=== PATIENT | female | born 1960 | race African-American/Black ===

== ENCOUNTER 2017-06-22 02:44 | Inpatient (IN) | payer SELFPAY ==
[~2017-06-22] VITALS: Ht 167.6 cm; Wt 180.1 kg
[2017-06-22] VITALS (19 sets, daily range): BP systolic 113–212; BP diastolic 58–96
[~2017-06-22 02:44] MED LIST: ACYC800T PO; PRED50TA PO; SULF1TAB24 PO
--- NOTE | 2017-06-22 02:52 | ED.ADGEN ---
Past History Past Medical History: Diabetes, Hypertension Past Surgical History: Cholecystectomy, Tubal ligation Alcohol Use: None Drug Use: None Adult General Chief Complaint Chief Complaint ".. I think .. I am having an allergic reaction..." HPI HPI Patient is a 56 year old female who presents with above hx and complaints facial and lip edema approximately 1 hour after taking her Lisinopril. Pt. did take two Benadryl. One previous episode of facial edema. No other changes in meds. or foods. No recent travel. Pt. has Hx. HTN, elevated cholesterol, morbid obesity, DM. Review of Systems Review of Systems Constitutional: Denies fever or chills [] Eyes: Denies change in visual acuity, redness, or eye pain [] HENT: Denies nasal congestion or sore throat []Complaints of facial edema. Respiratory: Denies cough or shortness of breath [] Cardiovascular: No additional information not addressed in HPI [] GI: Denies abdominal pain, nausea, vomiting, bloody stools or diarrhea [] : Denies dysuria or hematuria [] Musculoskeletal: Denies back pain or joint pain [] Integument: Denies rash or skin lesions [] Neurologic: Denies headache, focal weakness or sensory changes [] Endocrine: Denies polyuria or polydipsia [] All other systems were reviewed and found to be within normal limits, except as documented in this note. Family History Family History HTN, DM Current Medications Current Medications Current Medications Medications (Trade) Dose Ordered Sig/Travis Start Time Stop Time Status Last Admin Dose Admin Albuterol/ Ipratropium (Duoneb) 3 ml 1X ONCE 06/22/17 03:00 06/22/17 04:49 DC 06/22/17 03:00 3 ML Clonidine HCl (Catapres Tts-2) 1 patch 1X ONCE 06/22/17 03:15 06/22/17 04:49 DC 06/22/17 04:31 1 PATCH Diphenhydramine HCl (Benadryl) 50 mg 1X ONCE 06/22/17 03:00 06/22/17 04:49 DC 06/22/17 03:11 50 MG Famotidine (Pepcid Vial) 20 mg 1X ONCE 06/22/17 03:00 06/22/17 04:49 DC 06/22/17 03:11 20 MG Methylprednisolone Sodium Succinate (SOLU-Medrol 125MG VIAL) 125 mg 1X ONCE 06/22/17 03:00 06/22/17 04:50 DC 06/22/17 03:11 125 MG Ondansetron HCl (Zofran) 4 mg PRN Q4HRS PRN 06/22/17 03:15 06/23/17 03:14 Sodium Chloride 1,000 ml @ 60 mls/hr 1X ONCE 06/22/17 03:15 06/22/17 19:54 See Nursing for home meds Allergies Allergies - apparent allergic reaction to OCTAVIO inhibitor-( Lisinopril) possible allergic reaction to lipid meds by hx. Physical Exam Physical Exam Constitutional: Moderately acute distress, non-toxic appearance. [] HENT: Normocephalic, atraumatic, bilateral external ears normal, oropharynx moist, no oral exudates, nose normal. Marked angioedema to face and lip edema. Eyes: PERRLA, EOMI, conjunctiva normal, no discharge. [] Neck: Normal range of motion, no tenderness, supple, no stridor. [] Cardiovascular:Heart rate regular rhythm, no murmur [PMI to Lt. Lungs & Thorax: Bilateral breath sounds equal at apex on auscultation [] Basilar crackles. Abdomen: Bowel sounds normal, soft, no tenderness, no masses, no pulsatile masses. Morbid obesity. Old surgery scars. Skin: Warm, dry, no erythema, no rash. [] Back: No tenderness, no CVA tenderness. [] Extremities: No tenderness, no cyanosis, no clubbing, ROM intact, ankle edema. [ ] Neurologic: Alert and oriented X 3, normal motor function, normal sensory function, no focal deficits noted. [] Psychologic: Affect anxious, judgement normal, mood normal. [] Current Patient Data Vital Signs Vital Signs Date Time Temp Pulse Resp B/P (MAP) Pulse Ox O2 Delivery O2 Flow Rate FiO2 06/22/17 03:15 96 Room Air 06/22/17 02:55 99.0 90 22 152/101 (118) EKG EKG Pt. refused to get into bed or do EKG- 3:40 hrs. [] My interpretation of EKG shows a sinus rhythm at 79 bpm. Mild leftward axis. Some findings consistent with ventricular hypertrophic. Some nonspecific T-wave changes. But no findings acute STEMI of contralateral changes Radiology/Procedures Radiology/Procedures My interpretation of CXR shows[] some cephalization. Large cardiac silhouette. Course & Med Decision Making Course & Med Decision Making Pertinent Labs and Imaging studies reviewed. (See chart for details) Discussed presentation, testing and treatment plan with Dr. Marie, will admit for further eval and tx. Labs BMP- still pending, sample have been hemolyzed and lab will not run the sample. [] Final Impression Final Impression 1. Angioedema 2. HTN 3. Allergic Reaction- suspect Lisinopril. 4. Morbid obesity[] 5. Anemia-microcytic and hypochromic Problems: Dragon Disclaimer Dragon Disclaimer This electronic medical record was generated, in whole or in part, using a voice recognition dictation system. PAULINA MILLER MD Jun 22, 2017 02:52
[2017-06-22] MEDS ORDERED: IV NORMAL SALINE 1,000ML 1,000 ML IV SCH (02:56)
[2017-06-22] MEDS ORDERED: FAMOTIDINE 20 MG/2 ML VIAL IVP ONE (03:00)
[2017-06-22] MEDS ORDERED: diphenhydrAMINE 50 MG/ML VIAL IV ONE (03:00)
[2017-06-22] MEDS ORDERED: methylPREDNISolone SOD SUCC PF 125 MG/2 ML VIAL. IV ONE (03:00)
[2017-06-22] MEDS ORDERED: IPRATRPIUM/ALBUTEROL 0.5/2.5MG 3 ML NEBU. NEB ONE (03:00)
[2017-06-22] MEDS ORDERED: IV NORMAL SALINE 1,000ML 1,000 ML IV ONE (03:15)
[2017-06-22] MEDS ORDERED: cloNIDine TTS-2 1 PATCH PATCH TD ONE (03:15)
[2017-06-22] MEDS ORDERED: ONDANSETRON PF 4 MG/2 ML VIAL. IV PRN (03:15)
[2017-06-22 04:10] LABS: BASO # 0.1 x10^3/uL (0.0-0.2); BASO % 1 % (0-3); EOS # 0.3 x10^3/uL (0.0-0.7); EOS % 3 % (0-3); HEMOGLOBIN 11.5 g/dL (12.0-15.5); LYMPH # 3.2 x10^3/uL (1.0-4.8); LYMPH % 33 % (24-48); MEAN CORPUSCULAR HEMOGLOBIN 23 pg (25-35); MEAN CORPUSCULAR HGB CONC 31 g/dL (31-37); MEAN CORPUSCULAR VOLUME 73 fL (79-100); MONO # 0.6 x10^3/uL (0.0-1.1); MONO % 6 % (0-9); NEUT # 5.7 x10^3uL (1.8-7.7); NEUT % 58 % (31-73); PLATELET COUNT 272 x10^3/uL (140-400); RED BLOOD COUNT 5.09 x10^6/uL (3.50-5.40); RED CELL DISTRIBUTION WIDTH 16.1 % (11.5-14.5); WHITE BLOOD COUNT 9.9 x10^3/uL (4.0-11.0)
[2017-06-22 04:31] LABS: HYPOCHROMIA SLIGHT; MICROCYTOSIS SLIGHT; PLT ESTIMATE ADEQUATE (ADEQUATE)
[2017-06-22] MEDS ORDERED: METF500T4 PO (04:46)
[2017-06-22] MEDS ORDERED: HYDR25TA9 PO (04:46)
[2017-06-22] MEDS ORDERED: LISI40TA PO (04:46)
[2017-06-22 04:56] LABS: SEDIMENTATION RATE 20 (0-25)
[2017-06-22 05:52] LABS: ALBUMIN 3.5 g/dL (3.4-5.0); CALCIUM 9.3 mg/dL (8.5-10.1); CREATININE 1.2 mg/dL (0.6-1.0); DIRECT BILIRUBIN 0.1 mg/dL (0.0-0.2); GFR 55.8; MAGNESIUM 1.7 mg/dL (1.8-2.4); POTASSIUM 4.3 mmol/L (3.5-5.1); TOTAL BILIRUBIN 0.2 mg/dL (0.2-1.0); TOTAL PROTEIN 9.2 g/dL (6.4-8.2)
--- NOTE | 2017-06-22 06:00 | NUR ---
Admit Note: Pt admitted to ICU 5 from the ER after having an allergic reaction to her Lisinopril. Pt states that she has taken Lisinopril for a while and this is the first time this has happened. Denies any other new medications, soaps, or foods. Pt states her face just started swelling up. Pt is A/O X 4. Pleasant and cooperative with assessments and cares. Denies on SOB and talks in complete sentences at time of admission to the ICU. Will continue to monitor.
--- NOTE | 2017-06-22 07:00 | RAD ---
Portable chest, 06/22/2017: History: Dyspnea Comparison is made to a study from 11/12/2010. The heart is at the upper limits of normal in size. The pulmonary vascularity is normal. No pulmonary infiltrates are seen. There is no evidence of pleural fluid. IMPRESSION: 1. Borderline cardiomegaly. 2. No acute infiltrates.
--- NOTE | 2017-06-22 07:22 | EKG ---
[address] [address] Test Date: 2017-06-22 Test Time: 04:33:41 Pat Name: DAVID CARD Department: Room: Gender: F [employer]: : [id number] Requested By: PAULINA MILLER Order Number: [id number] Reading MD: Measurements Intervals Russell Rate: 79 P: -26 CO: 198 QRS: -26 QRSD: 100 T: 115 QT: 378 QTc: 434 Interpretive Statements SINUS RHYTHM LEFTWARD AXIS R-S TRANSITION ZONE IN V LEADS DISPLACED TO THE LEFT CONSIDER LEFT VENTRICULAR HYPERTROPHY T ABNORMALITY IN HIGH LATERAL LEADS ABNORMAL ECG RI6.01 No previous ECG available for comparison
[2017-06-22] MEDS: FAMOTIDINE 20 MG/2 ML VIAL IVP SCH ×2 (07:58→21:16)
[2017-06-22] MEDS: IPRATRPIUM/ALBUTEROL 0.5/2.5MG 3 ML NEBU. NEB SCH ×4 (08:00→21:53)
[2017-06-22] MEDS ORDERED: diphenhydrAMINE HCL 25 MG CAPSULE PO ONE (08:35)
[2017-06-22] MEDS: diphenhydrAMINE HCL 25 MG CAPSULE PO SCH ×3 (08:38→21:16)
[2017-06-22] MEDS: ACETAMINOPHEN 500 MG TABLET PO PRN ×2 (08:39→22:33)
[2017-06-22] MEDS: ALBUTEROL SULFATE 8GM INHALER. INH SCH ×2 (09:00→13:00)
[2017-06-22] MEDS ORDERED: methylPREDNISolone SOD SUCC PF 125 MG/2 ML VIAL. IV SCH (09:00)
[2017-06-22 10:02] LABS: BACTERIA,URINE 0 /HPF (0-FEW); BILIRUBIN,URINE NEG (NEG); CLARITY,URINE HAZY; COLOR,URINE YELLOW; GLUCOSE,URINE NEG (NEG); NITRITE,URINE NEG (NEG); RBC,URINE RARE /HPF (0-2); SQUAMOUS EPITHELIAL CELL,UR OCC /LPF; UROBILINOGEN,URINE 1 mg/dL (0.2 mg/dL); WBC,URINE RARE /HPF (0-4)
[2017-06-22 10:03] LABS: AMORPHOUS SEDIMENT,UR PRESENT /HPF
[2017-06-22 10:09] LABS: BARBITURATES NEG (NEG); BENZODIAZEPINES NEG (NEG); CANNABINOIDS NEG (NEG); COCAINE NEG (NEG); METHADONE NEG (NEG); OPIATES NEG (NEG); PHENCYCLIDINE NEG (NEG)
[2017-06-22 10:11] LABS: AMPHETAMINE/METHAMPHETAMINE NEG (NEG)
[2017-06-22] MEDS: metFORMIN 500 MG TABLET PO SCH ×2 (11:43→17:02)
[2017-06-22] MEDS: amLODIPine BESYLATE 10 MG TABLET PO SCH (11:43)
[2017-06-22] MEDS: hydroCHLOROthiazide 25 MG TABLET PO SCH (11:43)
[2017-06-22] MEDS ORDERED: FUROSEMIDE 40 MG/4 ML VIAL IVP ONE (15:15)
[2017-06-22] MEDS ORDERED: ALBUTEROL SULFATE 2.5 MG/3 ML NEBU. NEB PRN (16:45)
--- NOTE | 2017-06-22 17:05 | HP ---
ADMIT DATE: 06/22/2017 REASON FOR ADMISSION: Angioedema. HISTORY OF PRESENT ILLNESS: This is a 56-year-old female who took lisinopril and also started noticing her face and her lip gets very, very swollen. This had happened previously, and she has had about 3 doses of lisinopril because she had run out of it because of cost. PAST MEDICAL HISTORY: Morbid obesity, diabetes, hypercholesterolemia, hypertension, hypertension, diabetes, and fibromyalgia. MEDICATIONS: Metformin, unknown dose; lisinopril, unknown dose. PAST SURGICAL HISTORY: Cholecystectomy, tubal ligation. REVIEW OF SYSTEMS: Positive for severe snoring, weight gain, swollen lips, tingling in the back of her throat. No fever in 60 seconds. OBJECTIVE: VITAL SIGNS: Blood pressure is 164/88, pulse 86, respirations 20, pulse ox is 92% on 2 liters, height 66 inches, weight 405 pounds. HEENT: The patient's face is markedly swollen, particularly on the left side. Lips are very swollen, we can see the posterior pharynx. Tongue is not swollen. NECK: Supple, but she has a very short neck. LUNGS: Clear. CARDIOVASCULAR: Regular rhythm and rate. ABDOMEN: Soft, nontender. EXTREMITIES: Without edema. ASSESSMENT: 1. Angioedema secondary to lisinopril. 2. Elevated hypertension, uncontrolled. 3. Morbid obesity. 4. Sleep apnea suspect. PLAN: Treat the blood pressure with an alternative, do a nocturnal oximetry, and continue intravenous steroids and Benadryl. BRITNI HUA DO DR: DANIEL/tana JOB#: [id number] / [id number]
[2017-06-22] MEDS ORDERED: methylPREDNISolone SOD SUCC PF 125 MG/2 ML VIAL. ONE (18:43)
[2017-06-22] MEDS ORDERED: MELATONIN 3 MG TABLET PO PRN (19:15)
[2017-06-22] MEDS: methylPREDNISolone SOD SUCC PF 125 MG/2 ML VIAL. IV SCH (21:16)
[2017-06-23] VITALS (19 sets, daily range): BP systolic 119–187; BP diastolic 58–90
[2017-06-23] MEDS ORDERED: ALBUTEROL SULFATE 2.5 MG/3 ML NEBU. NEB PRN (00:45)
[2017-06-23] MEDS: diphenhydrAMINE HCL 25 MG CAPSULE PO SCH ×4 (01:59→18:00)
--- NOTE | 2017-06-23 03:00 | NUR ---
Patient has been tearful, anxious about being in the hospital. She is wanting to be home by Tuesday for her birthday. Cardene drip has been titrated down and discontinued. Pt's blood pressures are remaining below 160's/90's. Pt has had complaints of headache in the sinus areas of the face. Tylenol has been given per orders. Pt is also having noctural pulse oximetry tonight.
[2017-06-23] MEDS: ACETAMINOPHEN 500 MG TABLET PO PRN ×2 (04:03→08:15)
[2017-06-23] MEDS: IPRATRPIUM/ALBUTEROL 0.5/2.5MG 3 ML NEBU. NEB SCH ×4 (06:06→20:00)
[2017-06-23 06:23] LABS: BASO % 0 % (0-3); EOS % 0 % (0-3); HEMATOCRIT 35.9 % (36.0-47.0); LYMPH # 1.7 x10^3/uL (1.0-4.8); LYMPH % 16 % (24-48); MEAN CORPUSCULAR HEMOGLOBIN 22 pg (25-35); MEAN CORPUSCULAR HGB CONC 31 g/dL (31-37); MEAN CORPUSCULAR VOLUME 72 fL (79-100); MONO # 0.5 x10^3/uL (0.0-1.1); MONO % 4 % (0-9); NEUT # 8.8 x10^3uL (1.8-7.7); NEUT % 80 % (31-73); PLATELET COUNT 236 x10^3/uL (140-400); RED BLOOD COUNT 5.01 x10^6/uL (3.50-5.40); RED CELL DISTRIBUTION WIDTH 15.8 % (11.5-14.5)
[2017-06-23 06:36] LABS: ALBUMIN 3.4 g/dL (3.4-5.0); ALBUMIN/GLOBULIN RATIO 0.6 (1.0-1.7); CALCIUM 9.5 mg/dL (8.5-10.1); CREATININE 0.9 mg/dL (0.6-1.0); GFR 77.8; MAGNESIUM 1.7 mg/dL (1.8-2.4); POTASSIUM 4.1 mmol/L (3.5-5.1); TOTAL BILIRUBIN 0.2 mg/dL (0.2-1.0); TOTAL PROTEIN 9.1 g/dL (6.4-8.2)
[2017-06-23] MEDS ORDERED: SODIUM CHLORIDE 0.65% NASAL SPRAY 45ML BOTTLE. NS PRN (07:15)
[2017-06-23] MEDS ORDERED: MAGNESIUM SULFATE 2GM 50 ML IV ONE (07:15)
[2017-06-23 07:37] LABS: % BANDS 2 % (0-9); % LYMPHS 16 % (24-48); % MONOS 3 % (0-10); % SEGS 79 % (35-66)
[2017-06-23 07:38] LABS: ANISOCYTOSIS SLIGHT; PLT ESTIMATE ADEQUATE (ADEQUATE); POLYCHROMASIA SLIGHT; TOXIC VACUOLATION SLIGHT
[2017-06-23 07:39] LABS: HYPOCHROMIA SLIGHT; MICROCYTOSIS SLIGHT
[2017-06-23 07:40] LABS: TOXIC GRANULATION SLIGHT
--- NOTE | 2017-06-23 07:47 | NUR ---
Pt alert and orient, complains of sinus pain 2/, expressed concerns about discharge in time for birthday. Vital signs stable, blood glucose 188 from AM labs. Pt BG is normally controlled via metformin but is now receiving Solu-Medrol. Will continue to monitor closely.
[2017-06-23] MEDS: FAMOTIDINE 20 MG/2 ML VIAL IVP SCH ×2 (08:14→20:48)
[2017-06-23] MEDS: metFORMIN 500 MG TABLET PO SCH ×2 (08:15→17:00)
[2017-06-23] MEDS: methylPREDNISolone SOD SUCC PF 125 MG/2 ML VIAL. IV SCH ×2 (08:15→20:48)
[2017-06-23] MEDS: hydroCHLOROthiazide 25 MG TABLET PO SCH (08:15)
[2017-06-23] MEDS: amLODIPine BESYLATE 10 MG TABLET PO SCH (08:15)
[2017-06-23] MEDS: LOSARTAN 50 MG TABLET. PO SCH (14:07)
[2017-06-23] MEDS ORDERED: IBUPROFEN 400 MG TABLET. PO PRN (21:00)
[2017-06-24] MEDS: diphenhydrAMINE HCL 25 MG CAPSULE PO SCH ×3 (00:32→11:31)
[2017-06-24 00:39] VITALS: BP 155/60
--- NOTE | 2017-06-24 06:55 | PN ---
DATE: 06/23/2017 SUBJECTIVE: The patient is sitting on the edge of the bed comfortably in no apparent distress. She is feeling much better. The swelling of her face has come down considerably, although continued to have slight swelling of her face; however, she denied any shortness of breath. Denied any difficulty swallowing. Denied any wheezing, chest tightness. PHYSICAL EXAMINATION: GENERAL: When I examined her today, this afternoon, she looked well and was clearly in no apparent respiratory distress, pale, but no jaundice, cyanosis, or thyromegaly. No jugular venous distension. No limb edema. VITAL SIGNS: Her heart rate was 81, blood pressure 135/69, temperature was 97.5, respiratory rate was 18 and oxygen saturation was 95% on room air. HEAD, EYES, EARS, NOSE AND THROAT: Showed normocephalic, atraumatic. NECK: Supple. HEART: Showed normal first and second heart sounds with no gallop, rub or murmur. CHEST: Clear to auscultation. No crepitation or rhonchi. ABDOMEN: Distended, soft, nontender. No guarding or rigidity. No organomegaly. Hernial orifices intact. Bowel sounds normal. NEUROLOGIC: She is awake, alert, responding appropriately. Cranial nerves intact. She moves extremities without difficulty. She ambulates without assistance or assistive devices. Her intake was 4300, output was 2700. LABORATORY DATA: Her lab work this morning showed a white cell count of 11,000, hemoglobin 11, hematocrit 36, MCV 72 and platelet count of 236,000 with a manual differential showing 80% polymorphs, 16% lymphocytes, 4% monocytes. Her serum sodium was 135, potassium 4.1, chloride 97, bicarbonate 27, anion gap of 11, BUN 22, creatinine 0.9, estimated GFR was 77 mL per minute. Her glucose 188, calcium was 9.5. Magnesium was 1.7. Total bilirubin, AST, ALT, alkaline phosphatase are normal. Her total protein was 6.1, albumin was 3.4. TSH was 3.199. Prothrombin time was 10.4, INR 1, PTT was 26. Urinalysis was essentially unremarkable and urine toxicology screen was negative. Nasal screen for MRSA PCR was negative. Her chest x-ray was basically showing borderline cardiomegaly, no acute infiltrate. ASSESSMENT: This is a 56-year-old -[place] female patient with severe angioneurotic edema secondary to lisinopril, hypertension, morbid obesity, obstructive sleep apnea suspected. She is also known to have type 2 diabetes, hypercholesterolemia and fibromyalgia. PLAN: To cut down her steroids. She is on 125 mg IV twice a day and continue with all other medication. Continue with albuterol and Atrovent, famotidine and diphenhydramine. We will obviously discharge her tomorrow if all her swelling has completely subsided and her blood pressure remains stable. ALTAGRACIA WHITTEN MD DR: KERI/tana JOB#: [id number] / [id number]
[2017-06-24 07:14] LABS: CALCIUM 9.7 mg/dL (8.5-10.1); GFR 68.9; POTASSIUM 3.9 mmol/L (3.5-5.1)
[2017-06-24] MEDS ORDERED: predniSONE 20 MG TABLET PO SCH (09:00)
[2017-06-24] MEDS ORDERED: LOSARTAN 50 MG TABLET. PO SCH (09:00)
--- NOTE | 2017-06-24 09:00 | NUR ---
Pt sitting up on side of bed, cheerful and hoping to go home today. States her birthday is tuesday and she would like to be home. Pt swelling decreased to facial area, no soa or difficulty swallowing noted. IV solumedrol given this AM. Explained to patient that she will be discharging on a prednisone taper, patient understood POC. Will continue to monitor.
[2017-06-24] MEDS: metFORMIN 500 MG TABLET PO SCH (09:39)
[2017-06-24] MEDS: FAMOTIDINE 20 MG/2 ML VIAL IVP SCH (09:41)
[2017-06-24] MEDS: LOSARTAN 50 MG TABLET. PO SCH (09:58)
[2017-06-24] MEDS: hydroCHLOROthiazide 25 MG TABLET PO SCH (09:58)
[2017-06-24] MEDS: methylPREDNISolone SOD SUCC PF 125 MG/2 ML VIAL. IV SCH (09:59)
[2017-06-24] MEDS: amLODIPine BESYLATE 10 MG TABLET PO SCH (09:59)
[2017-06-24 10:04] VITALS: BP 109/63
[2017-06-24] MEDS ORDERED: AMLO10TA2 PO (13:06)
[2017-06-24] MEDS ORDERED: LOSA50TA6 PO (13:06)
[2017-06-24] MEDS ORDERED: FAMO20TA5 PO (13:10)
[2017-06-24] MEDS ORDERED: DIPH25CA58 PO (13:10)
--- NOTE | 2017-06-24 13:20 | NUR ---
Dr. Marie here at this time, plan to discharge patient. Pt able to verbalize POC and understands discharge instructions. Prednisone taper script given to patient. IV discontinued. Scripts transferred to pharmacy.
--- NOTE | 2017-06-24 13:50 | NUR ---
Pt educated over new medications, patient understands plan of care. Pt on his way.
--- NOTE | 2017-06-24 14:06 | DS ---
DATE OF DISCHARGE: 06/24/2017 HOSPITAL COURSE: The patient is a 56-year-old female patient who was admitted originally with marked swelling of her lips and also face. She is on lisinopril and was admitted; however, she denied any shortness of breath or difficulties with swallowing and was extensively investigated in the Emergency Room, was treated with steroids, Benadryl as well as famotidine, was admitted for close observation. The patient did very well. Her swelling of the face and lip has completely subsided. We discontinued her lisinopril and switched her to amlodipine and losartan, and she did very well. PHYSICAL EXAMINATION: GENERAL: When I saw her this afternoon, she was sitting on the edge of the bed comfortably, in no apparent respiratory distress, slightly pale, no jaundice, cyanosis, or thyromegaly. No jugular venous distension. No limb edema. VITAL SIGNS: His heart rate was 76, blood pressure 109/63, temperature was 98.1, respiratory rate was 18 and oxygen saturation was 95% on room air. HEAD, EYES, EARS, NOSE AND THROAT: Showed she is normocephalic, atraumatic. However, the swelling of her face and lips have completely subsided. NECK: Supple. HEART: Showed normal first and second heart sounds with no gallop, rub or murmur. CHEST: Clear to auscultation. No crepitation or rhonchi. ABDOMEN: Distended, soft, nontender. No guarding or rigidity. No organomegaly. All hernial orifices intact. Bowel sounds normal. NEUROLOGIC: She is awake, alert, responding appropriately. Cranial nerves intact. He moves extremities without difficulty. She ambulates without assistance or assistive devices. Her intake over the last 24 hours was 4300, output was 2700. LABORATORY DATA: This morning showed a serum sodium 135, potassium 3.9, chloride 96, bicarbonate 31, anion gap of 8, BUN 26, creatinine 1, estimated GFR was 78 mL per minute. Her glucose was 169, calcium was 9.7, magnesium was 2.1. Her total bilirubin, AST, ALT, alkaline phosphatase were normal. Total protein was 9.1, albumin was 3.4. TSH was normal. Her white cell count was 11,000, hemoglobin 11, hematocrit 36, MCV 72 and platelet count 236,000. DISCHARGE MEDICATIONS: The patient was discharged home to continue on amlodipine 10 mg once a day, diphenhydramine 25 mg every 4 hours as needed, famotidine 20 mg twice a day, losartan potassium 50 mg once a day, hydrochlorothiazide 25 mg once a day and metformin 500 mg twice a day with meals. FINAL DISCHARGE DIAGNOSES: 1. Angioneurotic edema as a reaction secondary to OCTAVIO inhibitors. The patient was advised to discontinue lisinopril and mentioned that she is allergic to it. 2. Hypertension, well controlled on hydrochlorothiazide, amlodipine and losartan 3. Type 2 diabetes, hypercholesterolemia, fibromyalgia, morbid obesity. ALTAGRACIA WHITTEN MD DR: KERI/tana JOB#: [id number] / [id number]
--- NOTE | 2017-06-24 15:15 | NUR ---
Pt discharged at this time, patient ambulated off unit with via wheelchair to hospital vehicle. Personal belongings left with patient.
== END 2017-06-24 15:15 | disposition home or self-care (01) | DRG 916 ==
LOC: ER 02:44 → ICU 03:15
PROVIDERS: ADMIT Internal Medicine; ATTEND Internal Medicine
DX: T78.3XXA Angioneurotic edema, initial encounter (principal); E66.01 Morbid (severe) obesity due to excess calories; E11.9 Type 2 diabetes mellitus without complications; I10 Essential (primary) hypertension; E78.00 Pure hypercholesterolemia, unspecified; D50.9 Iron deficiency anemia, unspecified; Z68.44 Body mass index [BMI] 60.0-69.9, adult; M79.7 Fibromyalgia; T46.4X5A Adverse effect of angiotensin-converting-enzyme inhibitors, initial encounter; Z90.49 Acquired absence of other specified parts of digestive tract; Z98.51 Tubal ligation status; Z82.49 Family history of ischemic heart disease and other diseases of the circulatory system; Z83.3 Family history of diabetes mellitus; Z79.84 Long term (current) use of oral hypoglycemic drugs; Z79.899 Other long term (current) drug therapy; Y92.89 Other specified places as the place of occurrence of the external cause
CPT/HCPCS: 36415; 71045; 80048; 80053; 80076; 80307; 81001; 83735; 83880; 84443; 84484; 85007; 85025; 85610; 85651; 85730; 87641; 93005; 94640; 94799; 96361; 96374; 96375; G0238; J1200; J1940; J2405; J2930; J3475; J7050; J7620; Q0163; S0028; 99285-25; G0479; J7030

== ENCOUNTER 2018-10-28 17:38 | Inpatient (IN) | payer SELFPAY ==
[~2018-10-28] VITALS: Ht 167.6 cm; Wt 168.1 kg
[~2018-10-28 17:38] MED LIST changes: +AMLO10TA8 PO; +DIPH25CA58 PO; +FAMO20TA5 PO; +HYDR-2145 PO; +LISI40TA PO; +LOSA50TA86 PO; +METF500T16 PO
--- NOTE | 2018-10-28 17:43 | ED.ADGEN ---
Past History Past Medical History: Arthritis, CHF, Diabetes, Hypertension, Other Past Surgical History: Cholecystectomy, Tubal ligation Alcohol Use: None Drug Use: None Adult General Chief Complaint Chief Complaint "... My legs are swelling up even more... and I very tired and weak.. I think it may be water pill.. this one on right is more swelled up..." HPI HPI Patient is a 58 year old female who presents with above hx of complaints with history of increased dyspnea, bilateral leg edema, pain in right lower leg, generalized weakness, and myalgia. Patient has been compliant with her meds. Does have a history of diabetes and hypertension. No recent travel. No specific ill contacts. No history immunosuppression. Pt. normally follows at [place] Review of Systems Review of Systems Constitutional: Denies fever or chills [] Eyes: Denies change in visual acuity, redness, or eye pain [] HENT: Denies nasal congestion or sore throat [] Respiratory: Complaints of shortness of breath [] Cardiovascular: No additional information not addressed in HPI [] GI: Denies abdominal pain, , vomiting, bloody stools or diarrhea []complaints of nausea : Denies dysuria or hematuria [] Musculoskeletal: Complains of joint pain []and right leg pain and edema. Complaints of generalized weakness. Integument: Denies rash or skin lesions [] Neurologic: Denies headache, focal weakness or sensory changes [] Endocrine: Denies polyuria or polydipsia [] All other systems were reviewed and found to be within normal limits, except as documented in this note. Family History Family History Hypertension diabetes Current Medications Current Medications Current Medications Medications (Trade) Dose Ordered Sig/Travis Start Time Stop Time Status Last Admin Dose Admin Acetaminophen (Tylenol) 650 mg PRN Q4HRS PRN 10/28/18 20:00 10/29/18 19:59 Aspirin (Children'S Aspirin) 324 mg 1X ONCE 10/28/18 18:45 10/28/18 18:46 DC 10/28/18 18:29 324 MG Enoxaparin Sodium (Lovenox 100mg Syringe) 170 mg 1X ONCE 10/28/18 18:45 10/28/18 18:46 DC 10/28/18 19:03 170 MG Iohexol (Omnipaque 350 Mg/ml) 100 ml 1X ONCE 10/28/18 20:00 7/6/19 20:01 DC 10/28/18 20:19 100 ML Lactated Ringer's 1,000 ml @ 160 mls/hr Q6H15M 10/28/18 20:00 10/28/18 22:30 160 MLS/HR Ondansetron HCl (Zofran) 4 mg PRN Q4HRS PRN 10/28/18 20:00 10/29/18 19:59 Allergies Allergies Allergies Coded Allergies Type Severity Reaction Last Updated Verified OCTAVIO Inhibitors Allergy Severe angioderm 06/23/17 Yes lisinopril Allergy Severe Swelling 06/22/17 Yes Sulfa (Sulfonamide Antibiotics) Allergy Intermediate 06/23/17 Yes Physical Exam Physical Exam Constitutional: Moderate acute distress, non-toxic appearance. [] HENT: Normocephalic, atraumatic, bilateral external ears normal, oropharynx moist, no oral exudates, nose normal. [] Eyes: PERRLA, EOMI, conjunctiva normal, no discharge. [] Neck: Normal range of motion, no tenderness, supple, no stridor. [] More than 17 inches circumference. Cardiovascular:Heart rate regular rhythm, no murmur []PMI to the left. Occasional PVC per monitor. Lungs & Thorax: Bilateral breath sounds equal apex and basilar crackles on auscultation [] Abdomen: Bowel sounds normal, soft, no tenderness, no masses, no pulsatile masses. [] Morbid Obese. Old scars Skin: Warm, dry, no erythema, no rash. [] Back: No tenderness, no CVA tenderness. [] Extremities: No tenderness, no cyanosis, no clubbing, ROM intact, bilateral lower leg edema. Erythema and right lower leg Neurologic: Alert and oriented X 3, normal motor function, normal sensory function, no focal deficits noted. [] Psychologic: Affect anxious, judgement normal, mood normal. [] Current Patient Data Vital Signs Vital Signs Date Time Temp Pulse Resp B/P (MAP) Pulse Ox O2 Delivery O2 Flow Rate FiO2 10/28/18 20:02 68 18 140/74 (96) 98 Room Air 10/28/18 17:38 97.7 Lab Results Laboratory Tests Test 10/28/18 14:00 10/28/18 18:17 Urine Collection Type Unknown Urine Color Yellow Urine Clarity Clear Urine pH 5.5 Urine Specific [place] 1.010 Urine Protein Neg (NEG-TRACE) Urine Glucose (UA) Neg mg/dL (NEG) Urine Ketones (Stick) Neg mg/dL (NEG) Urine Blood Neg (NEG) Urine Nitrite Neg (NEG) Urine Bilirubin Neg (NEG) Urine Urobilinogen Dipstick 0.2 mg/dL (0.2 mg/dL) Urine Leukocyte Esterase Trace (NEG) Urine RBC 0 /HPF (0-2) Urine WBC 1-4 /HPF (0-4) Urine Squamous Epithelial Cells Occ /LPF Urine Bacteria 0 /HPF (0-FEW) Urine Mucus Slight /LPF Urine Opiates Screen Neg (NEG) Urine Methadone Screen Neg (NEG) Urine Barbiturates Neg (NEG) Urine Phencyclidine Screen Neg (NEG) Urine Amphetamine/Methamphetamine Neg (NEG) Urine Benzodiazepines Screen Neg (NEG) Urine Cocaine Screen Neg (NEG) Urine Cannabinoids Screen Neg (NEG) Urine Ethyl Alcohol Neg (NEG) White Blood Count 7.8 x10^3/uL (4.0-11.0) Red Blood Count 4.70 x10^6/uL (3.50-5.40) Hemoglobin 10.5 g/dL (12.0-15.5) L Hematocrit 34.4 % (36.0-47.0) L Mean Corpuscular Volume 73 fL (79-100) L Mean Corpuscular Hemoglobin 22 pg (25-35) L Mean Corpuscular Hemoglobin Concent 31 g/dL (31-37) Red Cell Distribution Width 15.3 % (11.5-14.5) H Platelet Count 260 x10^3/uL (140-400) Neutrophils (%) (Auto) 61 % (31-73) Lymphocytes (%) (Auto) 28 % (24-48) Monocytes (%) (Auto) 8 % (0-9) Eosinophils (%) (Auto) 3 % (0-3) Basophils (%) (Auto) 0 % (0-3) Neutrophils # (Auto) 4.8 x10^3uL (1.8-7.7) Lymphocytes # (Auto) 2.2 x10^3/uL (1.0-4.8) Monocytes # (Auto) 0.6 x10^3/uL (0.0-1.1) Eosinophils # (Auto) 0.2 x10^3/uL (0.0-0.7) Basophils # (Auto) 0.0 x10^3/uL (0.0-0.2) Platelet Estimate Adequate (ADEQUATE) Hypochromasia Mod Anisocytosis Slight Prothrombin Time 10.6 SEC (9.4-11.4) Prothrombin Time INR 1.0 (0.9-1.1) PTT 29 SEC (23-33) D-Dimer (Debbie) 0.78 mg/L (0.00-0.50) H Sodium Level 137 mmol/L (136-145) Potassium Level 4.1 mmol/L (3.5-5.1) Chloride Level 101 mmol/L (98-107) Carbon Dioxide Level 30 mmol/L (21-32) Anion Gap 6 (6-14) Blood Urea Nitrogen 29 mg/dL (7-20) H Creatinine 0.9 mg/dL (0.6-1.0) Estimated GFR (Cockcroft-Gault) 77.3 Glucose Level 108 mg/dL (70-99) H Calcium Level 9.9 mg/dL (8.5-10.1) Magnesium Level 1.7 mg/dL (1.8-2.4) L Total Bilirubin 0.2 mg/dL (0.2-1.0) Direct Bilirubin 0.1 mg/dL (0.0-0.2) Aspartate Amino Transferase (AST) 20 U/L (15-37) Alanine Aminotransferase (ALT) 24 U/L (14-59) Alkaline Phosphatase 62 U/L (46-116) Creatine Kinase 154 U/L (26-192) Troponin I Quantitative < 0.017 ng/mL (0-0.055) LV-Jby-M-Type Natriuretic Peptide 202 pg/mL (0-124) H Total Protein 9.1 g/dL (6.4-8.2) H Albumin 3.5 g/dL (3.4-5.0) Lipase 94 U/L (73-393) EKG EKG My interpretation of EKG shows a sinus rhythm at 67. Does have occasional premature ventricular complexes. Left axis deviation. Left fascicular block. No findings acute STEMI of contralateral changes.[] Radiology/Procedures Radiology/Procedures [][id number] [address] IMAGING REPORT Signed PATIENT: DAVID CARD ACCOUNT: [id number] : 1960 LOCATION: [address] [place] [address] AGE: 58 SEX: F EXAM STATUS: ADM IN ORD. PHYSICIAN: ALTAGRACIA MARIE MD REASON: Chest pain, short of air, elevated d-dimer PROCEDURE: CT ANGIOGRAPHY CHEST PQRS Compliance statement: One or more of the following individualized dose reduction techniques were utilized for this examination: 1. Automated exposure control. 2. Adjustment of the mA and/or kV according to patient size. 3. Use of iterative reconstruction technique. Indication:Chest pain. Shortness of breath. TECHNIQUE: CT angiogram of the chest with IV contrast with multiplanar MIP reformats. COMPARISON: CT of chest from 11/08/2010 FINDINGS: Suboptimal PE study due to contrast bolus timing. No saddle embolus. Evaluation of segmental and subsegmental pulmonary arteries is limited. Heart is normal in size. No pericardial or pleural effusion. Clear neck base. No enlarged axillary, mediastinal or hilar adenopathy. Central airways are patent. Mosaic attenuation is seen in the lungs. Visualized sections through the liver, spleen, kidneys, pancreas and adrenals within normal limits. Colonic diverticulosis noted. Status post cholecystectomy. No suspicious bony lesion. IMPRESSION: 1. Suboptimal PE study due to contrast bolus timing. No saddle embolus. Evaluation of segmental and subsegmental pulmonary arteries is limited. 2. Slight mosaic attenuation the lungs can be secondary to small vessel or small airway disease. Electronically signed by: Renzo Mario DO (10/28/2018 9:16 PM) [facility] DICTATED AND SIGNED BY: RENZO MARIO DO DATE: 10/28/182115 CC: ALTAGRACIA MARIE MD; PCP,UNKNOWN ~ IMAGING REPORT Signed PATIENT: DAVID CARD ACCOUNT: [id number] : 1960 LOCATION: ER AGE: 58 SEX: F EXAM STATUS: REG ER ORD. PHYSICIAN: PAULINA MILLER MD REASON: dyspnea, leg edema, htn PROCEDURE: PORTABLE CHEST 1V PORTABLE CHEST 1V History: Dyspnea, leg edema, hypertension Comparison: 06/22/2017 Findings: Single view of the chest is submitted. Pericardial cardiac silhouette is again enlarged. Accurate evaluation of the lung bases is limited due to edema attenuation by soft tissues. There is no significant dependent pleural fluid or pneumothorax. Impression: 1. Pericardial cardiac silhouette is again enlarged. Evaluation of the lung bases is limited due to beam attenuation by soft tissues, no significant pleural fluid. Electronically signed by: Krunal Mijares MD (10/28/2018 7:23 PM) [facility] DICTATED AND SIGNED BY: KRUNAL MIJARES MD DATE: 10/28/181922 CC: PAULINA MILLER MD; PCP,UNKNOWN ~ IMAGING REPORT Signed PATIENT: DAVID CARD ACCOUNT: [id number] : 1960 LOCATION: ER AGE: 58 SEX: F EXAM STATUS: REG ER ORD. PHYSICIAN: PAULINA MILLER MD REASON: dyspnea, leg edema, htn PROCEDURE: PORTABLE CHEST 1V PORTABLE CHEST 1V History: Dyspnea, leg edema, hypertension Comparison: 06/22/2017 Findings: Single view of the chest is submitted. Pericardial cardiac silhouette is again enlarged. Accurate evaluation of the lung bases is limited due to edema attenuation by soft tissues. There is no significant dependent pleural fluid or pneumothorax. Impression: 1. Pericardial cardiac silhouette is again enlarged. Evaluation of the lung bases is limited due to beam attenuation by soft tissues, no significant pleural fluid. Electronically signed by: Krunal Mijares MD (10/28/2018 7:23 PM) [facility] DICTATED AND SIGNED BY: KRUNAL MIJARES MD DATE: 10/28/181922 Course & Med Decision Making Course & Med Decision Making Pertinent Labs and Imaging studies reviewed. (See chart for details) Heart score 4- to 5 Discussed presentation, testing and tx. plan with Dr. Marie. Will admit to Tele. Consult cardiology or dysrhythmia, htn . [] Final Impression Final Impression 1. Dyspnea[] 2. Elevated D-dimer 0.78 3. Microcytic Hypochromic Anemia Hgb. 10.5 4. Hypomagnesium 5. Leg Edema 6. Morbid Obesity 7. Weakness 8. Dysrhythmia 9. Hx. HTN Dragon Disclaimer Dragon Disclaimer This electronic medical record was generated, in whole or in part, using a voice recognition dictation system. Discharge Summary Visit Information Final Diagnosis Problems Medical Problems: (1) Dyspnea Status: Acute Brief Hospital Course Allergies Allergies Coded Allergies Type Severity Reaction Last Updated Verified OCTAVIO Inhibitors Allergy Severe angioderm 06/23/17 Yes lisinopril Allergy Severe Swelling 06/22/17 Yes Sulfa (Sulfonamide Antibiotics) Allergy Intermediate 06/23/17 Yes Vital Signs Vital Signs Date Time Temp Pulse Resp B/P (MAP) Pulse Ox O2 Delivery O2 Flow Rate FiO2 10/28/18 20:02 68 18 140/74 (96) 98 Room Air 10/28/18 17:38 97.7 Lab Results Laboratory Tests Test 10/28/18 14:00 10/28/18 18:17 Urine Collection Type Unknown Urine Color Yellow Urine Clarity Clear Urine pH 5.5 Urine Specific [place] 1.010 Urine Protein Neg (NEG-TRACE) Urine Glucose (UA) Neg mg/dL (NEG) Urine Ketones (Stick) Neg mg/dL (NEG) Urine Blood Neg (NEG) Urine Nitrite Neg (NEG) Urine Bilirubin Neg (NEG) Urine Urobilinogen Dipstick 0.2 mg/dL (0.2 mg/dL) Urine Leukocyte Esterase Trace (NEG) Urine RBC 0 /HPF (0-2) Urine WBC 1-4 /HPF (0-4) Urine Squamous Epithelial Cells Occ /LPF Urine Bacteria 0 /HPF (0-FEW) Urine Mucus Slight /LPF Urine Opiates Screen Neg (NEG) Urine Methadone Screen Neg (NEG) Urine Barbiturates Neg (NEG) Urine Phencyclidine Screen Neg (NEG) Urine Amphetamine/Methamphetamine Neg (NEG) Urine Benzodiazepines Screen Neg (NEG) Urine Cocaine Screen Neg (NEG) Urine Cannabinoids Screen Neg (NEG) Urine Ethyl Alcohol Neg (NEG) White Blood Count 7.8 x10^3/uL (4.0-11.0) Red Blood Count 4.70 x10^6/uL (3.50-5.40) Hemoglobin 10.5 g/dL (12.0-15.5) Hematocrit 34.4 % (36.0-47.0) Mean Corpuscular Volume 73 fL (79-100) Mean Corpuscular Hemoglobin 22 pg (25-35) Mean Corpuscular Hemoglobin Concent 31 g/dL (31-37) Red Cell Distribution Width 15.3 % (11.5-14.5) Platelet Count 260 x10^3/uL (140-400) Neutrophils (%) (Auto) 61 % (31-73) Lymphocytes (%) (Auto) 28 % (24-48) Monocytes (%) (Auto) 8 % (0-9) Eosinophils (%) (Auto) 3 % (0-3) Basophils (%) (Auto) 0 % (0-3) Neutrophils # (Auto) 4.8 x10^3uL (1.8-7.7) Lymphocytes # (Auto) 2.2 x10^3/uL (1.0-4.8) Monocytes # (Auto) 0.6 x10^3/uL (0.0-1.1) Eosinophils # (Auto) 0.2 x10^3/uL (0.0-0.7) Basophils # (Auto) 0.0 x10^3/uL (0.0-0.2) Platelet Estimate Adequate (ADEQUATE) Hypochromasia Mod Anisocytosis Slight Prothrombin Time 10.6 SEC (9.4-11.4) Prothromb Time International Ratio 1.0 (0.9-1.1) Activated Partial Thromboplast Time 29 SEC (23-33) D-Dimer (Debbie) 0.78 mg/L (0.00-0.50) Sodium Level 137 mmol/L (136-145) Potassium Level 4.1 mmol/L (3.5-5.1) Chloride Level 101 mmol/L (98-107) Carbon Dioxide Level 30 mmol/L (21-32) Anion Gap 6 (6-14) Blood Urea Nitrogen 29 mg/dL (7-20) Creatinine 0.9 mg/dL (0.6-1.0) Estimated GFR (Cockcroft-Gault) 77.3 Glucose Level 108 mg/dL (70-99) Calcium Level 9.9 mg/dL (8.5-10.1) Magnesium Level 1.7 mg/dL (1.8-2.4) Total Bilirubin 0.2 mg/dL (0.2-1.0) Direct Bilirubin 0.1 mg/dL (0.0-0.2) Aspartate Amino Transf (AST/SGOT) 20 U/L (15-37) Alanine Aminotransferase (ALT/SGPT) 24 U/L (14-59) Alkaline Phosphatase 62 U/L (46-116) Creatine Kinase 154 U/L (26-192) Troponin I Quantitative < 0.017 ng/mL (0-0.055) VG-Axq-V-Type Natriuretic Peptide 202 pg/mL (0-124) Total Protein 9.1 g/dL (6.4-8.2) Albumin 3.5 g/dL (3.4-5.0) Lipase 94 U/L (73-393) Brief Hospital Course Ms. Card is a 58 old female who presented with dyspnea, fatigue, weakness, morbid obesity, dysrhythmia and elevated D-dimer. Admitted to Dr. Marie with cardiology consult. Discharge Information Dischare Medications Current Medications Aspirin (Children'S Aspirin) 324 mg 1X ONCE PO Last administered on 10/28/18at 18:29; Admin Dose 324 MG; Start 10/28/18 at 18:45; Stop 10/28/18 at 18:46; Status DC Enoxaparin Sodium (Lovenox 100mg Syringe) 170 mg 1X ONCE SQ Last administered on 10/28/18at 19:03; Admin Dose 170 MG; Start 10/28/18 at 18:45; Stop 10/28/18 at 18:46; Status DC Lactated Ringer's 1,000 ml @ 100 mls/hr Q10H IV Last administered on 10/28/18at 18:29; Admin Dose 100 MLS/HR; Start 10/28/18 at 18:02; Stop 10/29/18 at 04:01 Iohexol (Omnipaque 350 Mg/ml) 100 ml 1X ONCE IV Last administered on 10/28/18at 20:19; Admin Dose 100 ML; Start 10/28/18 at 20:00; Stop 10/28/18 at 20:01; Status DC Ondansetron HCl (Zofran) 4 mg PRN Q4HRS PRN IV NAUSEA/VOMITING; Start 10/28/18 at 20:00; Stop 10/29/18 at 19:59 Acetaminophen (Tylenol) 650 mg PRN Q4HRS PRN PO FEVER; Start 10/28/18 at 20:00; Stop 10/29/18 at 19:59 Lactated Ringer's 1,000 ml @ 160 mls/hr Q6H15M IV Last administered on 10/28/18at 22:30; Admin Dose 160 MLS/HR; Start 10/28/18 at 20:00 Active Scripts Active Benadryl (Diphenhydramine Hcl) 25 Mg Capsule 1 Cap PO QHS Famotidine 20 Mg Tablet 1 Tab PO BID Losartan Potassium (Losartan Potassium) 50 Mg Tablet 50 Mg PO DAILY 30 Days Amlodipine Besylate 10 Mg Tablet 1 Tab PO DAILY Reported Metformin Hcl 500 Mg Tablet 500 Mg PO BIDWMEALS Hydrochlorothiazide Tablet (Hydrochlorothiazide) 25 Mg Tablet 25 Mg PO DAILY Dragon Disclaimer This chart was dictated in whole or in part using Voice Recognition software in a busy, high-work load, and often noisy Emergency Department environment. It may contain unintended and wholly unrecognized errors or omissions. PAULINA MILLER MD Oct 28, 2018 17:43
[2018-10-28] MEDS ORDERED: IV RINGERS SOLUTION,LACTATED 1,000 ML IV SCH (18:02)
[2018-10-28 18:41] LABS: BASO % 0 % (0-3); EOS # 0.2 x10^3/uL (0.0-0.7); EOS % 3 % (0-3); HEMATOCRIT 34.4 % (36.0-47.0); HEMOGLOBIN 10.5 g/dL (12.0-15.5); LYMPH # 2.2 x10^3/uL (1.0-4.8); LYMPH % 28 % (24-48); MEAN CORPUSCULAR HEMOGLOBIN 22 pg (25-35); MEAN CORPUSCULAR HGB CONC 31 g/dL (31-37); MEAN CORPUSCULAR VOLUME 73 fL (79-100); MONO # 0.6 x10^3/uL (0.0-1.1); MONO % 8 % (0-9); NEUT # 4.8 x10^3uL (1.8-7.7); NEUT % 61 % (31-73); PLATELET COUNT 260 x10^3/uL (140-400); RED CELL DISTRIBUTION WIDTH 15.3 % (11.5-14.5); WHITE BLOOD COUNT 7.8 x10^3/uL (4.0-11.0)
[2018-10-28] MEDS ORDERED: ENOXAPARIN ** NOTE DOSE ** SYRINGE SQ ONE (18:45)
[2018-10-28] MEDS ORDERED: ASPIRIN 81 MG TAB.CHEW PO ONE (18:45)
[2018-10-28 18:52] LABS: ALBUMIN 3.5 g/dL (3.4-5.0); CALCIUM 9.9 mg/dL (8.5-10.1); CREATININE 0.9 mg/dL (0.6-1.0); DIRECT BILIRUBIN 0.1 mg/dL (0.0-0.2); GFR 77.3; MAGNESIUM 1.7 mg/dL (1.8-2.4); POTASSIUM 4.1 mmol/L (3.5-5.1); TOTAL BILIRUBIN 0.2 mg/dL (0.2-1.0); TOTAL PROTEIN 9.1 g/dL (6.4-8.2)
--- NOTE | 2018-10-28 19:26 | RAD ---
PORTABLE CHEST 1V History: Dyspnea, leg edema, hypertension Comparison: 06/22/2017 Findings: Single view of the chest is submitted. Pericardial cardiac silhouette is again enlarged. Accurate evaluation of the lung bases is limited due to edema attenuation by soft tissues. There is no significant dependent pleural fluid or pneumothorax. Impression: 1. Pericardial cardiac silhouette is again enlarged. Evaluation of the lung bases is limited due to beam attenuation by soft tissues, no significant pleural fluid. Electronically signed by: Aidan Mijares MD (10/28/2018 7:23 PM) [facility]
[2018-10-28 19:33] LABS: BARBITURATES NEG (NEG); BENZODIAZEPINES NEG (NEG); CANNABINOIDS NEG (NEG); COCAINE NEG (NEG); METHADONE NEG (NEG); OPIATES NEG (NEG); PHENCYCLIDINE NEG (NEG)
[2018-10-28 19:55] LABS: AMPHETAMINE/METHAMPHETAMINE NEG (NEG)
[2018-10-28] MEDS ORDERED: ACETAMINOPHEN 325 MG TABLET PO PRN (20:00)
[2018-10-28] MEDS ORDERED: IOHEXOL 350 MG/ML 100 ML VIAL. IV ONE (20:00)
[2018-10-28] MEDS ORDERED: ONDANSETRON PF 4 MG/2 ML VIAL. IV PRN (20:00)
[2018-10-28 20:04] LABS: BACTERIA,URINE 0 /HPF (0-FEW); BILIRUBIN,URINE NEG (NEG); CLARITY,URINE CLEAR; COLOR,URINE YELLOW; GLUCOSE,URINE NEG (NEG); NITRITE,URINE NEG (NEG); RBC,URINE 0 /HPF (0-2); SQUAMOUS EPITHELIAL CELL,UR OCC /LPF; UROBILINOGEN,URINE 0.2 mg/dL (0.2 mg/dL)
[2018-10-28] MEDS ORDERED: MAGNESIUM HYDROXIDE 2,400 MG/30 ML ORAL.SUSP. PO ONE (20:15)
[2018-10-28] MEDS ORDERED: CONTRAST GIVEN MC PRN (20:15)
--- NOTE | 2018-10-28 21:19 | RAD ---
PQRS Compliance statement: One or more of the following individualized dose reduction techniques were utilized for this examination: 1. Automated exposure control. 2. Adjustment of the mA and/or kV according to patient size. 3. Use of iterative reconstruction technique. Indication:Chest pain. Shortness of breath. TECHNIQUE: CT angiogram of the chest with IV contrast with multiplanar MIP reformats. COMPARISON: CT of chest from 11/08/2010 FINDINGS: Suboptimal PE study due to contrast bolus timing. No saddle embolus. Evaluation of segmental and subsegmental pulmonary arteries is limited. Heart is normal in size. No pericardial or pleural effusion. Clear neck base. No enlarged axillary, mediastinal or hilar adenopathy. Central airways are patent. Mosaic attenuation is seen in the lungs. Visualized sections through the liver, spleen, kidneys, pancreas and adrenals within normal limits. Colonic diverticulosis noted. Status post cholecystectomy. No suspicious bony lesion. IMPRESSION: 1. Suboptimal PE study due to contrast bolus timing. No saddle embolus. Evaluation of segmental and subsegmental pulmonary arteries is limited. 2. Slight mosaic attenuation the lungs can be secondary to small vessel or small airway disease. Electronically signed by: Renzo Mario DO (10/28/2018 9:16 PM) [facility]
[2018-10-28 22:04] VITALS: BP 155/95
[2018-10-28] MEDS: IV RINGERS SOLUTION,LACTATED 1,000 ML IV SCH (22:30)
[2018-10-28 23:23] LABS: ANISOCYTOSIS SLIGHT; PLT ESTIMATE ADEQUATE (ADEQUATE)
[2018-10-28 23:24] LABS: HYPOCHROMIA MOD
[2018-10-29] MEDS ORDERED: ANTI-COAG MONITOR BY PHARMACY. MC PRN (00:15)
[2018-10-29 06:35] VITALS: BP 156/92
[2018-10-29 07:25] LABS: BASO % 0 % (0-3); EOS # 0.3 x10^3/uL (0.0-0.7); EOS % 3 % (0-3); HEMATOCRIT 34.1 % (36.0-47.0); HEMOGLOBIN 10.5 g/dL (12.0-15.5); LYMPH # 2.7 x10^3/uL (1.0-4.8); LYMPH % 32 % (24-48); MEAN CORPUSCULAR HEMOGLOBIN 23 pg (25-35); MEAN CORPUSCULAR HGB CONC 31 g/dL (31-37); MEAN CORPUSCULAR VOLUME 73 fL (79-100); MONO # 0.6 x10^3/uL (0.0-1.1); MONO % 7 % (0-9); NEUT % 58 % (31-73); PLATELET COUNT 257 x10^3/uL (140-400); RED BLOOD COUNT 4.68 x10^6/uL (3.50-5.40); RED CELL DISTRIBUTION WIDTH 15.3 % (11.5-14.5); WHITE BLOOD COUNT 8.6 x10^3/uL (4.0-11.0)
[2018-10-29 07:30] LABS: CALCIUM 9.8 mg/dL (8.5-10.1); CREATININE 0.7 mg/dL (0.6-1.0); GFR 103.3; POTASSIUM 3.9 mmol/L (3.5-5.1)
[2018-10-29] MEDS ORDERED: ENOXAPARIN ** NOTE DOSE ** SYRINGE SQ SCH (09:00)
--- NOTE | 2018-10-29 09:02 | RAD ---
Bilateral Leg Venous Doppler Ultrasound, 10/29/2018 Indication: Bilateral leg pain Comparison: None available Procedure: Real-time grayscale, color flow color duplex Doppler and spectral analysis are obtained with and without compression in the area of the common femoral vein, superficial femoral vein - femoral vein junction, main femoral vein (superficial femoral vein) and popliteal vein. Veins of the proximal calf are also imaged. Findings: Study is extremely limited due to patient's large body habitus. There is poor visualization of the veins with duplex Doppler and spectral evaluation distal to the popliteal veins bilaterally, however color flow is seen. Impression: Extremely limited exam, however no gross evidence of DVT noted. Electronically signed by: Charo Thompson MD (10/29/2018 8:59 AM) [facility]
[2018-10-29] MEDS: ASPIRIN 81 MG TAB.CHEW PO SCH (09:09)
[2018-10-29] MEDS: HYDROcodone/APAP 5/325MG 1 TAB TABLET PO PRN ×3 (09:27→22:36)
[2018-10-29] MEDS: metFORMIN 500 MG TABLET PO SCH ×2 (09:27→17:58)
[2018-10-29] MEDS: hydroCHLOROthiazide 25 MG TABLET PO SCH (09:28)
[2018-10-29] MEDS: FAMOTIDINE 20 MG TABLET PO SCH ×2 (09:28→20:11)
[2018-10-29] MEDS: LOSARTAN 50 MG TABLET. PO SCH (09:29)
[2018-10-29] MEDS: amLODIPine BESYLATE 10 MG TABLET PO SCH (09:30)
[2018-10-29] MEDS: IV RINGERS SOLUTION,LACTATED 1,000 ML IV SCH (10:00)
[2018-10-29 10:43] VITALS: BP 127/77
--- NOTE | 2018-10-29 12:10 | PDOC2 ---
CONSULT Date of Admission DATE: 10/29/18 TIME: 12:10 Reason for Consult: Edema Referring Physician: Dr. Marie Chief Complaint Dyspnea and edema Source: Chart review, Patient Problem List Problems Medical Problems: (1) Dyspnea Status: Acute History of Present Illness 58-year-old female presented complaining of progressive shortness of breath, bilateral lower extremity edema and right foot pain. She denied any chest pain, orthopnea/PND, palpitations or syncope. Past Medical History Morbid obesity Hypertension Hyperlipidemia Diabetes mellitus type 2 Obstructive sleep apnea Fibromyalgia Past Surgical History Cholecystectomy Tubal ligation Family History Coronary artery disease and hypertension Social History Patient denied any smoking, alcohol or drug use Current Medications Current Medications Aspirin (Children'S Aspirin) 324 mg 1X ONCE PO Last administered on 10/28/18at 18:29; Start 10/28/18 at 18:45; Stop 10/28/18 at 18:46; Status DC Enoxaparin Sodium (Lovenox 100mg Syringe) 170 mg 1X ONCE SQ Last administered on 10/28/18at 19:03; Start 10/28/18 at 18:45; Stop 10/28/18 at 18:46; Status DC Lactated Ringer's 1,000 ml @ 100 mls/hr Q10H IV Last administered on 10/28/18at 18:29; Start 10/28/18 at 18:02; Stop 10/29/18 at 04:01; Status DC Magnesium Hydroxide (Milk Of Magnesia) 2,400 mg 1X ONCE PO Last administered on 10/28/18at 19:42; Start 10/28/18 at 20:15; Stop 10/28/18 at 20:16; Status DC Iohexol (Omnipaque 350 Mg/ml) 100 ml 1X ONCE IV Last administered on 10/28/18at 20:19; Start 10/28/18 at 20:00; Stop 10/28/18 at 20:01; Status DC Info (Do NOT chart on this entry -- for MONITORING) 1 each PRN DAILY PRN MC SEE COMMENTS; Start 10/28/18 at 20:15; Stop 10/30/18 at 20:14 Ondansetron HCl (Zofran) 4 mg PRN Q4HRS PRN IV NAUSEA/VOMITING; Start 10/28/18 at 20:00; Stop 10/29/18 at 19:59 Acetaminophen (Tylenol) 650 mg PRN Q4HRS PRN PO FEVER; Start 10/28/18 at 20:00; Stop 10/29/18 at 19:59 Lactated Ringer's 1,000 ml @ 160 mls/hr Q6H15M IV Last administered on 10/29/18at 10:00; Start 10/28/18 at 20:00 Aspirin (Children'S Aspirin) 81 mg DAILY PO Last administered on 10/29/18 09:09; Start 10/29/18 at 09:00 Enoxaparin Sodium (Lovenox 80mg Syringe) 160 mg Q12HR SQ Last administered on 10/29/18 09:08; Start 10/29/18 at 09:00 Info (Anti-Coagulation Monitoring By Pharmacy) 1 each PRN DAILY PRN MC SEE COMMENTS; Start 10/29/18 at 00:15 Acetaminophen/ Hydrocodone Bitart (Lortab 5/325) 1 tab PRN Q4HRS PRN PO PAIN Last administered on 10/29/18 09:27; Start 10/29/18 at 09:15 Diphenhydramine HCl (Benadryl) 25 mg QHS PO ; Start 10/29/18 at 21:00 Hydrochlorothiazide (Hydrodiuril) 25 mg DAILY PO Last administered on 10/29/18 09:28; Start 10/29/18 at 09:00 Losartan Potassium (Cozaar) 50 mg DAILY PO Last administered on 10/29/18 09:29; Start 10/29/18 at 09:00 Amlodipine Besylate (Norvasc) 10 mg DAILY PO Last administered on 10/29/18at 09:3 0; Start 10/29/18 at 09:00 Famotidine (Pepcid) 20 mg BID PO Last administered on 10/29/18 09:28; Start 10/29/18 at 09:30 Metformin HCl (Glucophage) 500 mg BIDWMEALS PO Last administered on 10/29/18 09:27; Start 10/29/18 at 09:30 Active Scripts Active Benadryl (Diphenhydramine Hcl) 25 Mg Capsule 1 Cap PO QHS Famotidine 20 Mg Tablet 1 Tab PO BID Losartan Potassium (Losartan Potassium) 50 Mg Tablet 50 Mg PO DAILY 30 Days Amlodipine Besylate 10 Mg Tablet 1 Tab PO DAILY Reported Metformin Hcl 500 Mg Tablet 500 Mg PO BIDWMEALS Hydrochlorothiazide Tablet (Hydrochlorothiazide) 25 Mg Tablet 25 Mg PO DAILY Allergies: Coded Allergies: OCTAVIO Inhibitors (Verified Allergy, Severe, angioderm, 06/23/17) lisinopril (Verified Allergy, Severe, Swelling, 06/22/17) angioedema Sulfa (Sulfonamide Antibiotics) (Verified Allergy, Intermediate, 06/23/17) PSYCHOLOGICAL ROS: No: Hallucinations Eyes: No: Loss of vision HEENT: No: Epistaxis Respiratory: YES: Shortness of breath; No: Hemoptysis Cardiovascular: No: Chest Pain Gastrointestinal: No: Vomiting Genitourinary: No: Henaturia Neurological: No: Seizures Skin: No: Rash General: Alert, Oriented X3 HEENT: Atraumatic, PERRLA Lungs: Clear to auscultation Heart: Regular rate Abdomen: Soft, No tenderness Extremities: Other (trace) Psych/Mental Status: Mood NL VITALS Vital Signs Date Time Temp Pulse Resp B/P (MAP) Pulse Ox O2 Delivery O2 Flow Rate FiO2 10/29/18 10:43 97.8 76 20 127/77 (94) 97 Room Air Labs Laboratory Tests Test 10/28/18 14:00 10/28/18 18:17 10/29/18 06:51 10/29/18 07:47 Urine Collection Type Unknown Urine Color Yellow Urine Clarity Clear Urine pH 5.5 Urine Specific [place] 1.010 Urine Protein Neg (NEG-TRACE) Urine Glucose (UA) Neg mg/dL (NEG) Urine Ketones (Stick) Neg mg/dL (NEG) Urine Blood Neg (NEG) Urine Nitrite Neg (NEG) Urine Bilirubin Neg (NEG) Urine Urobilinogen Dipstick 0.2 mg/dL (0.2 mg/dL) Urine Leukocyte Esterase Trace (NEG) Urine RBC 0 /HPF (0-2) Urine WBC 1-4 /HPF (0-4) Urine Squamous Epithelial Cells Occ /LPF Urine Bacteria 0 /HPF (0-FEW) Urine Mucus Slight /LPF Urine Opiates Screen Neg (NEG) Urine Methadone Screen Neg (NEG) Urine Barbiturates Neg (NEG) Urine Phencyclidine Screen Neg (NEG) Urine Amphetamine/Methamphetamine Neg (NEG) Urine Benzodiazepines Screen Neg (NEG) Urine Cocaine Screen Neg (NEG) Urine Cannabinoids Screen Neg (NEG) Urine Ethyl Alcohol Neg (NEG) White Blood Count 7.8 x10^3/uL (4.0-11.0) 8.6 x10^3/uL (4.0-11.0) Red Blood Count 4.70 x10^6/uL (3.50-5.40) 4.68 x10^6/uL (3.50-5.40) Hemoglobin 10.5 g/dL (12.0-15.5) 10.5 g/dL (12.0-15.5) Hematocrit 34.4 % (36.0-47.0) 34.1 % (36.0-47.0) Mean Corpuscular Volume 73 fL (79-100) 73 fL (79-100) Mean Corpuscular Hemoglobin 22 pg (25-35) 23 pg (25-35) Mean Corpuscular Hemoglobin Concent 31 g/dL (31-37) 31 g/dL (31-37) Red Cell Distribution Width 15.3 % (11.5-14.5) 15.3 % (11.5-14.5) Platelet Count 260 x10^3/uL (140-400) 257 x10^3/uL (140-400) Neutrophils (%) (Auto) 61 % (31-73) 58 % (31-73) Lymphocytes (%) (Auto) 28 % (24-48) 32 % (24-48) Monocytes (%) (Auto) 8 % (0-9) 7 % (0-9) Eosinophils (%) (Auto) 3 % (0-3) 3 % (0-3) Basophils (%) (Auto) 0 % (0-3) 0 % (0-3) Neutrophils # (Auto) 4.8 x10^3uL (1.8-7.7) 5.0 x10^3uL (1.8-7.7) Lymphocytes # (Auto) 2.2 x10^3/uL (1.0-4.8) 2.7 x10^3/uL (1.0-4.8) Monocytes # (Auto) 0.6 x10^3/uL (0.0-1.1) 0.6 x10^3/uL (0.0-1.1) Eosinophils # (Auto) 0.2 x10^3/uL (0.0-0.7) 0.3 x10^3/uL (0.0-0.7) Basophils # (Auto) 0.0 x10^3/uL (0.0-0.2) 0.0 x10^3/uL (0.0-0.2) Platelet Estimate Adequate (ADEQUATE) Hypochromasia Mod Anisocytosis Slight Prothrombin Time 10.6 SEC (9.4-11.4) Prothromb Time International Ratio 1.0 (0.9-1.1) Activated Partial Thromboplast Time 29 SEC (23-33) D-Dimer (Debbie) 0.78 mg/L (0.00-0.50) Sodium Level 137 mmol/L (136-145) 141 mmol/L (136-145) Potassium Level 4.1 mmol/L (3.5-5.1) 3.9 mmol/L (3.5-5.1) Chloride Level 101 mmol/L (98-107) 102 mmol/L (98-107) Carbon Dioxide Level 30 mmol/L (21-32) 28 mmol/L (21-32) Anion Gap 6 (6-14) 11 (6-14) Blood Urea Nitrogen 29 mg/dL (7-20) 19 mg/dL (7-20) Creatinine 0.9 mg/dL (0.6-1.0) 0.7 mg/dL (0.6-1.0) Estimated GFR (Cockcroft-Gault) 77.3 103.3 Glucose Level 108 mg/dL (70-99) 100 mg/dL (70-99) Calcium Level 9.9 mg/dL (8.5-10.1) 9.8 mg/dL (8.5-10.1) Magnesium Level 1.7 mg/dL (1.8-2.4) Total Bilirubin 0.2 mg/dL (0.2-1.0) Direct Bilirubin 0.1 mg/dL (0.0-0.2) Aspartate Amino Transf (AST/SGOT) 20 U/L (15-37) Alanine Aminotransferase (ALT/SGPT) 24 U/L (14-59) Alkaline Phosphatase 62 U/L (46-116) Creatine Kinase 154 U/L (26-192) Troponin I Quantitative < 0.017 ng/mL (0-0.055) XS-Vaz-O-Type Natriuretic Peptide 202 pg/mL (0-124) Total Protein 9.1 g/dL (6.4-8.2) Albumin 3.5 g/dL (3.4-5.0) Triglycerides Level 151 mg/dL (0-150) Cholesterol Level 191 mg/dL (0-200) LDL Cholesterol, Calculated 127 mg/dL (0-100) VLDL Cholesterol, Calculated 30 mg/dL (0-40) Non-HDL Cholesterol Calculated 157 mg/dL (0-129) HDL Cholesterol 34 mg/dL (40-60) Cholesterol/HDL Ratio 5.0 Lipase 94 U/L (73-393) Glucose (Fingerstick) 85 mg/dL (70-99) Assessment/Plan 1. Shortness of breath of uncertain etiology. Chest x-ray without any overt CHF and BNP level 202. Check 2-D echo to assess LV systolic function. Lexiscan nuclear stress test could be considered as an outpatient. Hypertension 2. Accelerated hypertension: Resume home medications and titrate for better control 3. Diabetes mellitus type 2: Treated per IM Thank you for your consultation OANH GREGORY MD Oct 29, 2018 12:10
[2018-10-29 12:54] LABS: C REACTIVE PROTEIN 33.8 mg/L (0-3.3); URIC ACID 7.3 mg/dL (2.6-6.0)
--- NOTE | 2018-10-29 13:11 | HP ---
ADMIT DATE: HISTORY OF PRESENT ILLNESS: The patient came to the Emergency Room complaining of increased shortness of breath, bilateral leg edema, pain in her right lower leg, generalized weakness, and myalgia. She stated that she has been compliant with her medication, does have a history of diabetes and hypertension with no recent travel and no specific ill contact. She normally follows at [facility]. She was extensively investigated in the Emergency Room and her D-dimer was slightly elevated at 0.78. Urinalysis is unremarkable. Toxic screen was negative. She has had a chest x-ray, which showed pericardial cardiac silhouette again enlarged. Evaluation of the lung bases is limited due to beam attenuation of soft tissue. No significant pleural effusion. Her CT angio of the chest showed suboptimal PE study due to contrast bolus timing, no saddle embolus. Evaluation of segmental and subsegmental pulmonary arteries is limited. Slight mosaic attenuation in the lungs can be secondary to small vessel or small airway disease. She did have a venous Doppler ultrasound of her bilateral extremities showed there is no gross evidence of DVT noted. She was admitted with continued all his medication, continued on her Lovenox. PAST MEDICAL HISTORY: Significant for morbid obesity, obstructive sleep apnea, hypercholesterolemia, hypertension, type 2 diabetes and fibromyalgia. PAST SURGICAL HISTORY: Significant for cholecystectomy and tubal ligation. ALLERGIES: She is allergic to OCTAVIO INHIBITORS and SULFA DRUGS as well as LISINOPRIL. MEDICATIONS: She is currently on following medications: She is on diphenhydramine 25 mg at bedtime, amlodipine besylate 10 mg p.o. daily, losartan potassium 50 mg daily, hydrochlorothiazide 25 mg daily, famotidine 20 mg once a day, metformin 500 mg twice a day. FAMILY HISTORY: She has 4 sisters and 1 brother, all younger. Her mother at the age of 76 because of sepsis. Father at the age of 74 because of myocardial infarction. SOCIAL HISTORY: She is . She has 1 son. She does not smoke, drink alcohol or use any recreational drugs. She is retired as a guitar teacher. PHYSICAL EXAMINATION: GENERAL: On arrival to the Emergency Room, she apparently was slightly tachypneic, but there was no pallor, jaundice, cyanosis, or thyromegaly. No jugular venous distension. No lower limb edema. VITAL SIGNS: Her heart rate was 79, blood pressure was 138/90, temperature was 97.7, respiratory rate was 22 and oxygen saturation was 100% on room air. HEAD, EYES, EARS, NOSE AND THROAT: Showed normocephalic, atraumatic. NECK: Supple. HEART: Showed normal first and second heart sounds with no gallop, rub or murmur. CHEST: Clear to auscultation. No crepitation or rhonchi. ABDOMEN: Distended, soft, nontender. No guarding or rigidity. No organomegaly. All hernial orifice intact. Bowel sounds normal. NEUROLOGIC: She was awake, alert, responding appropriately. All cranial nerves intact. EXTREMITIES: She moves her extremities without difficulty according to the ER physician commands. LABORATORY STUDIES: Her lab work on arrival showed a white cell count of 7800, hemoglobin 10.5, hematocrit 34, MCV 73 and platelet count of 260,000. Her chemistry showed a serum sodium 137, potassium 4.1, chloride 101, bicarbonate 30, anion gap of 6, BUN 29, creatinine 0.9, estimated GFR was 77 mL per minute. Her glucose was 108, calcium was 9.9, magnesium was 1.7. Total bilirubin, AST, ALT, alkaline phosphatase were normal. CK was 54. Beta natriuretic peptide was 202. Total protein was 9.1, albumin was 3.5. Her lipase was 94. Her fasting lipid profile showed serum triglycerides of 151, total cholesterol 191, LDL cholesterol 127, VLDL was 30, HDL cholesterol was 34 and total cholesterol to HDL cholesterol ratio was 5. Lipase was 94. Her prothrombin time was 10.6, INR of 1, aPTT was 29. D-dimer was 0.78. Her urinalysis was essentially unremarkable. Toxic screen was essentially negative. Her chest x-ray showed that she has pericardial cardiac silhouette again enlarged. Evaluation of the lung bases is limited due to beam attenuation of soft tissue, no significant pleural effusion. CT angio of the chest showed that it was a suboptimal pulmonary embolism study due to contrast bolus timing, no saddle embolus. Evaluation of segmental and subsegmental pulmonary arteries is limited. She has slight mosaic attenuation of the lungs can be secondary to small vessel or small airway disease. She had had bilateral venous Doppler ultrasound, which showed extremely limited exam; however, no gross evidence of DVT noted. ASSESSMENT AND PLAN: So basically, the patient was admitted with increasing shortness of breath, microcytic hypochromic anemia, hypomagnesemia, morbid obesity and hypertension. She was continued on all her medication and was started on Lovenox at 160 mg q. 12 hourly as well as IV fluid. ALTAGRACIA WHITTEN MD DR: KERI/tana JOB#: [id number] / [id number]
[2018-10-29 15:00] VITALS: BP 145/78
[2018-10-29 19:46] VITALS: BP 152/81
[2018-10-29] MEDS: diphenhydrAMINE HCL 25 MG CAPSULE PO SCH (20:11)
[2018-10-29] MEDS: ENOXAPARIN ** NOTE DOSE ** SYRINGE SQ SCH (20:11)
--- NOTE | 2018-10-29 21:04 | RAD ---
Three-view right ankle and three-view right foot dated 10/29/2018. No comparison available. CLINICAL INDICATION: Pain. Difficulty walking. FINDINGS: 3 views right ankle show normal bony alignment. No displaced fracture. Diffuse soft tissue swelling. Talar dome is intact. No acute osseous or articular abnormality. Vascular calcinosis. 3 views the right foot show normal bony alignment. No displaced fracture. No acute osseous or articular abnormality. There is diffuse soft tissue swelling. IMPRESSION: 1. Soft tissue swelling with no evidence of underlying acute bony abnormality. Electronically signed by: Magdaleno Lizama MD (10/29/2018 9:00 PM) [facility]
[2018-10-29 22:21] VITALS: BP 127/74
--- NOTE | 2018-10-30 03:48 | PN ---
DATE: 10/29/2018 SUBJECTIVE: The patient is resting, slightly propped up in bed, in no apparent respiratory distress. Today, her main complaint is pain and swelling, burning sensation in her right lower extremity particularly around her right ankle joint and right foot that she stated that this has been going on for almost 2 weeks now. PHYSICAL EXAMINATION: GENERAL: When I examined her this morning, she was resting, slightly propped up, sleeping comfortably, in no apparent respiratory distress. No pallor, jaundice, cyanosis, or thyromegaly. No jugular venous distension. No lower limb edema. VITAL SIGNS: Her heart rate was 74, blood pressure was 155/95, temperature was 97.6, respiratory rate was 20, and oxygen saturation was 97%. HEAD, EYES, EARS, NOSE AND THROAT: Normocephalic, atraumatic. NECK: Supple. HEART: Showed normal first and second heart sounds. No gallop, rub or murmur. CHEST: Clear to auscultation. No crepitation or rhonchi. ABDOMEN: Distended, soft, nontender. No guarding or rigidity. No organomegaly. All hernial orifice intact. Bowel sounds normal. NEUROLOGIC: She is awake, alert, responding appropriately. All cranial nerves intact. She moves extremities without difficulty, though she has severe pain in her right leg, mostly around her right ankle joint and also over the dorsum of the right foot with that area is more hyperpigmented compared to the left foot, tender to touch, although no obvious deformity. The patient denied any trauma or fall. LABORATORY DATA: Her lab work this morning showed a white cell count of 8600, hemoglobin 10.5, hematocrit 34, MCV 73 and platelet count 257,000. Her chemistry showed a serum sodium 141, potassium 3.9, chloride 102, bicarbonate 28, anion gap of 11, BUN 19, creatinine 0.7, estimated GFR was 103 mL per minute. Her glucose was 100, calcium was 9.8. PLAN: My plan is to arrange for her x-ray of the right ankle and right foot. I will add also uric acid, sed rate and C-reactive protein to her lab works and decide the further management accordingly. ALTAGRACIA WHITTEN MD DR: KERI/tana JOB#: [id number] / [id number]
[2018-10-30 05:44] VITALS: BP 123/69
[2018-10-30] MEDS: HYDROcodone/APAP 5/325MG 1 TAB TABLET PO PRN (05:48)
[2018-10-30] MEDS: FAMOTIDINE 20 MG TABLET PO SCH ×2 (08:37→21:41)
[2018-10-30] MEDS: ASPIRIN 81 MG TAB.CHEW PO SCH (08:37)
[2018-10-30] MEDS: metFORMIN 500 MG TABLET PO SCH (08:37)
[2018-10-30] MEDS: amLODIPine BESYLATE 10 MG TABLET PO SCH (08:37)
[2018-10-30] MEDS: hydroCHLOROthiazide 25 MG TABLET PO SCH (08:37)
[2018-10-30] MEDS: LOSARTAN 50 MG TABLET. PO SCH (08:37)
[2018-10-30] MEDS: ENOXAPARIN ** NOTE DOSE ** SYRINGE SQ SCH ×2 (08:38→21:36)
[2018-10-30] MEDS ORDERED: GLYB5TAB3 PO (08:50)
[2018-10-30] MEDS: glyBURIDE 5 MG TABLET PO SCH (10:01)
[2018-10-30] MEDS ORDERED: IBUPROFEN 600 MG TABLET. PO PRN (10:30)
[2018-10-30 10:34] VITALS: BP 137/87
[2018-10-30] MEDS ORDERED: INDOMETHACIN 25 MG CAPSULE PO ONE (14:00)
--- NOTE | 2018-10-30 14:37 | CARD ---
MR#: [id number] Date of Study: 10/30/2018 Ordering Physician: OANH GREGORY, Referring Physician: ALTAGRACIA WHITTEN Tech: Vianney Maharaj RDCS APPROVED REPORT EXAM: Two-dimensional and M-mode echocardiogram with Doppler and color Doppler. Other Information Quality : Good INDICATION Dyspnea Morbid Obesity 2D DIMENSIONS RVDd2.5 (2.9-3.5cm)Left Atrium(2D)4.4 (1.6-4.0cm) IVSd1.1 (0.7-1.1cm)Aortic Root(2D)2.8 (2.0-3.7cm) LVDd4.7 (3.9-5.9cm)LVOT Diameter2.0 (1.8-2.4cm) PWd0.0 (0.7-1.1cm)LVDs2.9 (2.5-4.0cm) FS (%) 36.9 %SV67.3 ml LVEF(%)65.0 (>50%) Aortic Valve AoV Peak Rigoberto.174.5cm/sAoV VTI33.8cm AO Peak GR.12.2mmHgAO Mean GR.7mmHg OMAR (VTI)2.86cm2 Mitral Valve MV E Psctdiuy571.8cm/sMV DECEL [id number] MV A Scawcwzy44.2cm/sE/A Ratio1.4 Tricuspid Valve TR P. Yjkjdjum195ct/sRAP [id number] TR Peak Gr.[id number] LEFT VENTRICLE The left ventricle is normal size. There is normal left ventricular wall thickness. The left ventricu lar systolic function is normal and the ejection fraction is within normal range. The Ejection Fracti on is 60-65%. There is normal LV segmental wall motion. Tissue Doppler imaging reveals mild left vent ricular diastolic dysfunction. RIGHT VENTRICLE The right ventricle is normal size. The right ventricular systolic function is normal. ATRIA The left atrium is mildly dilated. The right atrium size is normal. The interatrial septum is intact with no evidence for an atrial septal defect or patent foramen ovale as noted on 2-D or Doppler imagi ng. AORTIC VALVE The aortic valve is not well visualized but appears to be functioning normally by Doppler interrogati on. Doppler and Color Flow revealed no significant aortic regurgitation. There is no significant aort ic valvular stenosis. MITRAL VALVE The mitral valve is calcified but opens well. Mitral annular calcification is mild. There is no evide nce of mitral valve prolapse. There is no mitral valve stenosis. Doppler and Color Flow revealed no m itral valve regurgitation noted. TRICUSPID VALVE The tricuspid valve is normal in structure and function. Doppler and Color Flow revealed trace tricus pid regurgitation. There is mild-moderate pulmonary hypertension. The PA pressure was estimated at 44 mmHg. There is no tricuspid valve stenosis. PULMONIC VALVE The pulmonic valve is not well visualized. Doppler and Color Flow revealed trace pulmonic valvular re gurgitation. There is no pulmonic valvular stenosis. GREAT VESSELS The aortic root is normal in size. The ascending aorta is normal in size. The IVC is normal in size a nd collapses >50% with inspiration. PERICARDIAL EFFUSION There is no evidence of significant pericardial effusion. Critical Notification Critical Value: No <Conclusion> The left ventricular systolic function is normal and the ejection fraction is within normal range. Th e Ejection Fraction is 60-65%. There is normal LV segmental wall motion. Doppler and Color Flow revealed trace tricuspid regurgitation. There is mild-moderate pulmonary hyper tension. The PA pressure was estimated at 44 mmHg. Signed by : Go Quintana, Electronically Approved : 10/30/2018 14:36:19
[2018-10-30 15:00] VITALS: BP 119/69
[2018-10-30 19:20] VITALS: BP 152/79
[2018-10-30] MEDS: diphenhydrAMINE HCL 25 MG CAPSULE PO SCH (21:36)
[2018-10-30] MEDS: INDOMETHACIN 25 MG CAPSULE PO SCH (21:41)
[2018-10-30 22:46] VITALS: BP 145/86
[2018-10-31 05:31] VITALS: BP 163/80
[2018-10-31 07:41] LABS: HEMATOCRIT 32.8 % (36.0-47.0); RED BLOOD COUNT 4.5 x10^6/uL (3.50-5.40); RED CELL DISTRIBUTION WIDTH 14.9 % (11.5-14.5); WHITE BLOOD COUNT 6.3 x10^3/uL (4.0-11.0)
[2018-10-31] MEDS: glyBURIDE 5 MG TABLET PO SCH (07:44)
[2018-10-31] MEDS: FAMOTIDINE 20 MG TABLET PO SCH (07:44)
[2018-10-31] MEDS: ASPIRIN 81 MG TAB.CHEW PO SCH (07:44)
[2018-10-31] MEDS: hydroCHLOROthiazide 25 MG TABLET PO SCH (07:44)
[2018-10-31 07:45] LABS: ALBUMIN 3.1 g/dL (3.4-5.0); ALBUMIN/GLOBULIN RATIO 0.6 (1.0-1.7); CALCIUM 9.5 mg/dL (8.5-10.1); CREATININE 0.7 mg/dL (0.6-1.0); GFR 103.3; POTASSIUM 3.7 mmol/L (3.5-5.1); TOTAL BILIRUBIN 0.3 mg/dL (0.2-1.0); TOTAL PROTEIN 8.4 g/dL (6.4-8.2)
[2018-10-31] MEDS: amLODIPine BESYLATE 10 MG TABLET PO SCH (07:45)
[2018-10-31] MEDS: LOSARTAN 50 MG TABLET. PO SCH (07:45)
[2018-10-31] MEDS: ENOXAPARIN ** NOTE DOSE ** SYRINGE SQ SCH (07:47)
[2018-10-31] MEDS: INDOMETHACIN 25 MG CAPSULE PO SCH (07:57)
[2018-10-31] MEDS ORDERED: NAPROXEN 500 MG TABLET PO SCH (09:00)
[2018-10-31 10:40] VITALS: BP 116/72
[2018-10-31] MEDS ORDERED: NAPR500T8 PO (12:48)
[2018-10-31] MEDS ORDERED: ALLO300T PO (12:48)
[2018-10-31] MEDS ORDERED: NAPR-514 PO (12:48)
--- NOTE | 2018-10-31 13:09 | PN ---
DATE: 10/30/2018 SUBJECTIVE: The patient is resting, slightly propped up in bed, in no apparent distress. She continued to complain of pain in her right foot and right ankle joint. We did x-ray of her right ankle and right foot, and both showed soft tissue swelling without any evidence of underlying acute bony abnormalities. Her uric acid was high at 7.3 mg and C-reactive protein was 33.8 mg and her sed rate was 83 mm per hour, all consistent with acute gouty arthritis. PHYSICAL EXAMINATION: GENERAL: When I examined her this afternoon, she looked well and was clearly in no apparent respiratory distress. No pallor, jaundice, cyanosis, or thyromegaly. No jugular venous distension. No limb edema. VITAL SIGNS: Her heart rate was 80, blood pressure was 137/87, temperature was 97.8, respiratory rate was 20, and oxygen saturation was 96% on room air. HEAD, EYES, EARS, NOSE AND THROAT: Normocephalic, atraumatic. NECK: Supple. CARDIAC: Normal first and second heart sounds. No gallop, rub or murmur. CHEST: Clear to auscultation. No crepitation or rhonchi. ABDOMEN: Distended, soft, nontender. NEUROLOGIC: She is awake, alert, responding appropriately. All cranial nerves intact. She moves extremities without difficulty. She continued to have marked tenderness and swelling of her right ankle and right foot. Her intake over the last 24 hours was 1100, no output was recorded. LABORATORY DATA: Her lab work this morning showed that her sed rate was 83 mm per hour. Her chemistry showed a serum sodium 141, potassium 3.9, chloride 102, bicarbonate 28, anion gap of 11, BUN 19, creatinine 0.7, estimated GFR was 103 mL per minute. Her glucose was 100. Uric acid was 7.3. Calcium was 9.8. ____ was 33.8. ASSESSMENT: Acute gouty arthritis for which we will start her on indomethacin 50 mg once and then 25 mg 3 times a day, continue that for a few days, and then switch her to colchicine and also allopurinol. Other medical problems include morbid obesity, obstructive sleep apnea, hypertension, hyperlipidemia, type 2 diabetes, and fibromyalgia. ALTAGRACIA WHITTEN MD DR: KERI/tana JOB#: [id number] / [id number]
--- NOTE | 2018-10-31 15:51 | DS ---
DATE OF DISCHARGE: 10/31/2018 HOSPITAL COURSE: The patient is sitting on the edge of the bed, eating her lunch comfortably, in no apparent distress, pain and swelling and her right ankle and right foot has largely subsided. She has been up and about walking without difficulty. We did start her on indomethacin that caused headaches, so switched her to naproxen. She is doing fine with that and a decision was made to discharge her home to continue with naproxen 500 mg twice a day for one week and then took down to 250 mg twice a day and start allopurinol and take them together for 2 weeks and then discontinue naproxen. I also recommended that she should discontinue hydrochlorothiazide since the cause of her hyperuricemia and acute gouty arthritis. PHYSICAL EXAMINATION: GENERAL: When I examined her this afternoon, she looked well and was clearly in no apparent respiratory distress. No pallor, jaundice, cyanosis, or thyromegaly. No jugular venous distension. No limb edema. VITAL SIGNS: Her heart rate was 77, blood pressure was 116/72, temperature was 98.5, respiratory rate was 20, and oxygen saturation was 98%. HEAD, EYES, EARS, NOSE AND THROAT: Showed normocephalic, atraumatic. NECK: Supple. HEART: Showed normal first and second heart sounds. No gallop, rub or murmur. CHEST: Clear to auscultation. No crepitation or rhonchi. ABDOMEN: Distended, soft, nontender. No guarding or rigidity. No organomegaly. All hernial orifice intact. Bowel sounds normal. NEUROLOGIC: She was awake, alert, responding appropriately. All cranial nerves intact. She moves extremities without difficulty. Her intake over the last 24 hours was 900, no output was recorded. LABORATORY DATA: Her lab work this morning showed her serum sodium 139, potassium 3.7, chloride 101, bicarbonate 31, anion gap of 7, BUN 14, creatinine 0.7, estimated GFR was 103 mL per minute. Her glucose 103, calcium was 9.5. Total bilirubin, AST, ALT, alkaline phosphatase were normal. Total protein was 8.4, albumin was 3.1. Her white cell count was 6300, hemoglobin 10, hematocrit 33, MCV 73 and platelet count 250,000. Her uric acid was 7.3 mg/dL. C-reactive protein was 33.8 mg/dL and her sed rate was 83 mL per hour. Her fasting lipid profile showed total serum triglycerides of 151, total cholesterol 191, LDL cholesterol was 127, VLDL was 30, HDL was 34 and the ratio was 5. DISCHARGE MEDICATIONS: She was discharged home to continue on following medications: Amlodipine besylate 10 mg daily, diphenhydramine 25 mg at bedtime, famotidine 20 mg twice a day, glyburide 5 mg once a day, losartan potassium 50 mg once a day. I discontinued her hydrochlorothiazide. She will be discharged on naproxen 500 mg twice a day for one week and then naproxen 250 mg twice a day for 2 weeks. At that time, she should start amlodipine after she finish the 500 mg twice a day of naproxen and take naproxen for 2 weeks with allopurinol, then drop the naproxen and continue with allopurinol on its own at 300 mg once a day. FINAL DISCHARGE DIAGNOSES: 1. Acute gouty arthritis. 2. Hyperuricemia. 3. Morbid obesity, obstructive sleep apnea. 4. Hypercholesterolemia. 5. Hypertension. 6. Type 2 diabetes mellitus. 7. Fibromyalgia. ALTAGRACIA WHITTEN MD DR: KERI/tana JOB#: [id number] / [id number]
== END 2018-10-31 13:10 | disposition home or self-care (01) | DRG 554 ==
LOC: ER 17:38 → 1 SOUTH 20:12
PROVIDERS: ADMIT Internal Medicine; ATTEND Internal Medicine
DX: M10.9 Gout, unspecified (principal); Z68.43 Body mass index [BMI] 50.0-59.9, adult; D50.9 Iron deficiency anemia, unspecified; E11.9 Type 2 diabetes mellitus without complications; E66.01 Morbid (severe) obesity due to excess calories; E78.00 Pure hypercholesterolemia, unspecified; E78.5 Hyperlipidemia, unspecified; E83.42 Hypomagnesemia; G47.33 Obstructive sleep apnea (adult) (pediatric); I11.0 Hypertensive heart disease with heart failure; M19.90 Unspecified osteoarthritis, unspecified site; I50.9 Heart failure, unspecified; M79.7 Fibromyalgia; Z82.49 Family history of ischemic heart disease and other diseases of the circulatory system; Z83.3 Family history of diabetes mellitus; Z90.49 Acquired absence of other specified parts of digestive tract; Z98.51 Tubal ligation status; Z88.8 Allergy status to other drugs, medicaments and biological substances; Z88.2 Allergy status to sulfonamides; Z79.899 Other long term (current) drug therapy
CPT/HCPCS: 36415; 71045; 71275; 73610; 73630; 80048; 80053; 80061; 80076; 80307; 81001; 82550; 82947; 83690; 83735; 83880; 84484; 84550; 85025; 85027; 85379; 85610; 85651; 85730; 86140; 87086; 93005; 93306; 93970; 96360; 96361; 96372; G0238; J1650; J7120; Q0163; Q9967; 99285-25